=== PATIENT | male | born 1950 | race Caucasian/White ===

== ENCOUNTER 2019-07-10 07:10 | Emergency (ER) | payer OTHER ==
[2019-07-10 07:49] VITALS: BP 139/88
--- NOTE | 2019-07-10 08:24 | ED ---
Respiratory - HPI Summary HPI Summary: 68 yr old male with the complaint of sinus pressure, post nasal drip, coughing. He denies fever, denies chills. He has had persistent coughing for about two weeks with persistent sinus pain and pressure. The symptoms are moderate. No other complaints. - History of Current Complaint Chief Complaint: UCRespiratory Stated Complaint: COUGH Time Seen by Provider: 07/10/19 08:02 Pain Intensity: 0 - Allergy/Home Medications Allergies/Adverse Reactions: Allergies Allergy/AdvReac Type Severity Reaction Status Date / Time No Known Allergies Allergy Verified 07/10/19 07:42 Home Medications: Home Medications Acetaminophen [Acetaminophen Extra Strength] 500 mg PO Q6H PRN 07/10/19 [ History Confirmed 07/10/19] Dextromethorphan Hb/Doxylamine [Robitussin Nighttime Cough Dm] 1 liq PO Q6H PRN 07/10/19 [History Confirmed 07/10/19] GuaiFENesin DM 100 mg/10 mg [Robitussin DM 100 mg/10 mg in 5 ml] 10 ml PO Q6H PRN 07/10/19 [History Confirmed 07/10/19] PMH/Surg Hx/FS Hx/Imm Hx - Surgical History Surgery Procedure, Year, and Place: Left TKA, 2019; Left Knee Arthroscopy, 2018 ; L3 L4 Discectomy, 2011; Bilateral Inguinal Herniorrhaphy, 2006; Traumatic right Second Finger Amputation, 1999; Appendectomy, 1967; Rhinoplasty, 1965 Infectious Disease History: No Infectious Disease History: Denies: Traveled Outside the [place] in Last 30 Days - Family History Known Family History: Positive: None - Social History Alcohol Use: None Substance Use Type: Reports: None Smoking Status (MU): Never Smoked Tobacco Review of Systems Constitutional: Negative Positive: Nasal Discharge Positive: Cough All Other Systems Reviewed And Are Negative: Yes Physical Exam Triage Information Reviewed: Yes Vital Signs On Initial Exam: Initial Vitals Temp Pulse Resp BP Pulse Ox 98.4 F 68 18 139/88 99 07/10/19 07:41 07/10/19 07:41 07/10/19 07:41 07/10/19 07:41 07/10/19 07:41 Vital Signs Reviewed: Yes Appearance: Positive: Well-Appearing, No Pain Distress Skin: Positive: Warm, Skin Color Reflects Adequate Perfusion Head/Face: Positive: Normal Head/Face Inspection Eyes: Positive: EOMI ENT: Positive: Normal ENT inspection, Nasal congestion, Nasal drainage, Sinus tenderness Neck: Positive: Nontender Respiratory/Lung Sounds: Positive: Clear to Auscultation, Breath Sounds Present Cardiovascular: Positive: RRR. Negative: Murmur Abdomen Description: Positive: Nontender Musculoskeletal: Positive: Strength/ROM Intact Neurological: Positive: Sensory/Motor Intact, Alert, Oriented to Person Place, Time, CN Intact II-III, Normal Gait, Speech Normal Psychiatric: Positive: Normal Diagnostics - Vital Signs Vital Signs Temp Pulse Resp BP Pulse Ox 07/10/19 07:41 98.4 F 68 18 139/88 99 - Laboratory Lab Statement: Any lab studies that have been ordered have been reviewed, and results considered in the medical decision making process. Disposition - Course Course Of Treatment: 68 yr old male with sinusitis. Rx Augmentin. FU with PMD in [place] as well. BP recheck. - Diagnoses Provider Diagnoses: Sinusitis, Hypertension Discharge ED - Sign-Out/Discharge Documenting (check all that apply): Patient Departure All imaging exams completed and their final reports reviewed: No Studies - Discharge Plan Condition: Good Disposition: HOME Prescriptions: Amoxicillin/Clavulanate TAB* [Augmentin TAB 875*] 875 mg PO BID #20 tab Patient Education Materials: Sinusitis (ED), Hypertension (ED) Referrals: No Primary Care Phys,NOPCP [Primary Care Provider] - [facility] [Outside] - Billing Disposition and Condition Condition: GOOD Disposition: Home
== END 2019-07-10 08:40 | disposition home or self-care (01) ==
LOC: UCCORT 07:10
DX: J32.9 Chronic sinusitis, unspecified (principal); I10 Essential (primary) hypertension; R05 Cough
CPT/HCPCS: 99202; G0463